=== PATIENT | female | born 1995 | race Caucasian/White ===

== ENCOUNTER 2017-02-05 12:10 | Emergency (ER) | payer MEDICAID, OTHER ==
[~2017-02-05] VITALS: Ht 162.6 cm; Wt 68.0 kg
[~2017-02-05 12:10] MED LIST: OMEP40CA2 PO; ZOFR4TAB3 SL
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
[2017-02-05 12:59] VITALS: BP 134/73; PULSE 80; RESP 18; TEMP 98.8; O2SAT 95
[2017-02-05 13:40] LABS: AUTOMATED NEUTROPHIL # 8.9 TH/MM3 (1.8-7.7); BASOPHIL # 0.1 TH/MM3 (0-0.2); BASOPHIL % 0.4 % (0.0-2.0); EOSINOPHIL # 0.1 TH/MM3 (0-0.4); EOSINOPHIL % 0.6 % (0.0-4.0); HEMATOCRIT 42.9 % (35.0-46.0); HEMO FLAGS DIFF FINAL; LYMPH % 15.1 % (9.0-44.0); LYMPHOCYTE # 1.7 TH/MM3 (1.0-4.8); MEAN CELL VOLUME 84.8 FL (80.0-100.0); MEAN CORPUSCULAR HEMOGLOBIN 28.7 PG (27.0-34.0); MEAN CORPUSCULAR HGB CONC 33.9 % (32.0-36.0); MONO % 6.3 % (0.0-8.0); NEUT % 77.6 % (16.0-70.0); PLATELET COUNT 292 TH/MM3 (150-450); RED BLOOD COUNT 5.06 MIL/MM3 (4.00-5.30); RED CELL DISTRIBUTION WIDTH 13.4 % (11.6-17.2); WHITE BLOOD COUNT 11.5 TH/MM3 (4.0-11.0)
[2017-02-05 13:55] LABS: ALT (GPT) 20 U/L (9-42); ANION GAP 7 MEQ/L (5-15); AST (GOT) 11 U/L (16-38); BLOOD UREA NITROGEN 9 MG/DL (7-18); CHLORIDE 103 MEQ/L (98-107); GLOMERULAR FILTRATION RATE 89 ML/MIN (>89); POTASSIUM 3.7 MEQ/L (3.5-5.1); SODIUM (NA) 137 MEQ/L (136-145)
[2017-02-05 13:57] LABS: ALKALINE PHOSPHATASE 53 U/L (45-117); TOTAL BILIRUBIN ADULT 0.5 MG/DL (0.2-1.0)
[2017-02-05 15:18] LABS: AMPHETAMINE, URINE NEG (NEG); BARBITURATES, URINE NEG (NEG); COCAINE, URINE NEG (NEG)
[2017-02-05] MEDS ORDERED: ACETAMINOPHEN 325 MG TAB PO ONE (17:15)
[2017-02-05 18:22] VITALS: BP 136/84; PULSE 68; RESP 20; TEMP 97.6; O2SAT 98
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
== END 2017-02-05 20:21 | disposition home or self-care (01) ==
LOC: NEPJ 12:10
DX: F43.24 Adjustment disorder with disturbance of conduct (principal); F17.210 Nicotine dependence, cigarettes, uncomplicated
CPT/HCPCS: 80053; 80307; 84703; 85025; 99283

== ENCOUNTER 2018-03-18 15:00 | Emergency (ER) | payer MEDICAID, OTHER ==
[2018-03-18 15:09] VITALS: BP 128/72; PULSE 85; RESP 16; TEMP 98.5; O2SAT 100
[2018-03-18] MEDS ORDERED: ONDA4TAB7 SL (15:39)
[2018-03-18] MEDS ORDERED: AMOX875T PO (15:39)
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
== END 2018-03-18 15:54 | disposition home or self-care (01) ==
LOC: NEPK 15:00
DX: K08.89 Other specified disorders of teeth and supporting structures (principal); J06.9 Acute upper respiratory infection, unspecified; F17.210 Nicotine dependence, cigarettes, uncomplicated
CPT/HCPCS: 99283